=== PATIENT | male | born 1980 | race Caucasian/White ===

== ENCOUNTER 2016-10-10 16:13 | Emergency (ER) | payer MEDICARE, OTHER ==
[2016-10-10 16:35] VITALS: BP 131/82; PULSE 75; RESP 16; TEMP 98.8; O2SAT 99
--- NOTE | 2016-10-10 16:56 | ED PDOC ---
HPI: Chest Pain Time Seen by Provider: 10/10/16 16:22 Chief Complaint (Nursing): Cough, Cold, Congestion Chief Complaint (Provider): Cough/Chest Pain History Per: Patient History/Exam Limitations: no limitations Onset/Duration Of Symptoms: Persistent (2 weeks) Current Symptoms Are (Timing): Still Present Severity: Moderate Additional Complaint(s): Luis Momin is a 35 y/o male presenting to the ER on 10/10/2016 with complaints of a productive cough w/ yellow sputum x2 weeks. Cough is associated with chills and left sided pleuritic chest pain. Patient describes pain is exacerbated upon deep breaths, coughing, and movement. Patient denies any fevers or palpitations Of note, patient has a past medical history of HIV (+). CD4 count is 800 with an undetectable viral load. Past Medical History Reviewed: Historical Data, Nursing Documentation, Vital Signs Vital Signs: Last Vital Signs Temp 98.8 F 10/10/16 16:25 Pulse 75 10/10/16 16:25 Resp 16 10/10/16 16:25 BP 131/82 10/10/16 16:25 Pulse Ox 99 10/10/16 19:30 - Medical History PMH: HIV - Surgical History Surgical History: No Surg Hx - Family History Family History: States: Unknown Family Hx - Social History Current smoker - smoking cessation education provided: Yes Alcohol: None Drugs: Denies - Home Medications Home Medications: Ambulatory Orders Medication Instructions Recorded Albuterol HFA [Ventolin HFA 90 1 puff IH ASDIR #1 unit 06/24/16 mcg/actuation (8 g)] Benzonatate 200 mg PO TID PRN #20 capsule 06/24/16 Levofloxacin [Levaquin] 500 mg PO DAILY #5 tablet 06/24/16 Albuterol HFA [Ventolin HFA 90 2 puff IH [id number] PRN #1 bottle 10/10/16 mcg/actuation (8 g)] Azithromycin [Zithromax] 500 mg PO DAILY #1 tab 10/10/16 - Allergies Allergies/Adverse Reactions: Allergies Allergy/AdvReac Type Severity Reaction Status Date / Time No Known Allergies Allergy Verified 06/24/16 12:27 Curb-65 Severity Score - CURB-65 Severity Score Bun >19mg/dl (>7mmol/L): No Respiratory Rate greater than/equal to 30: No Systolic BP <90 or Diastolic BP less than/equal 60mmHg: No Age >64: No Curb-65 Score: 0 Percentage 30-day mortality: 0.6% Review of Systems ROS Statement: Except As Marked, All Systems Reviewed And Found Negative Constitutional: Positive for: Chills. Negative for: Fever Cardiovascular: Positive for: Chest Pain. Negative for: Palpitations Respiratory: Positive for: Cough, Sputum (yellow) Physical Exam - Reviewed Nursing Documentation Reviewed: Yes Vital Signs Reviewed: Yes - Physical Exam Appears: Positive for: Non-toxic, No Acute Distress Head Exam: Positive for: ATRAUMATIC, NORMOCEPHALIC Skin: Positive for: Normal Color, Warm, Dry Eye Exam: Positive for: Normal appearance, EOMI, PERRL Neck: Positive for: Normal, Painless ROM, Supple Cardiovascular/Chest: Positive for: Regular Rate, Rhythm. Negative for: Chest Non Tender ((+) tenderness to left anterior chest wall ), Murmur Respiratory: Positive for: Normal Breath Sounds. Negative for: Wheezing, Respiratory Distress Extremity: Positive for: Normal ROM, Other ((-) edema ). Negative for: Calf Tenderness, Deformity, Swelling Neurologic/Psych: Positive for: Alert, Oriented, Other (pt is able to speak complete sentences ). Negative for: Motor/Sensory Deficits - Laboratory Results Result Diagrams: 10/10/16 17:00 10/10/16 17:00 - ECG Interpretation Of ECG: NSR @ 68, no ST-T changes. O2 Sat by Pulse Oximetry: 99 - Radiology X-Ray: Read By Radiologist (Findings are most compatible with reactive small airway disease/ viral/ atypical pneumonitis. No lobar pneumonia.) Medical Decision Making Medical Decision Makin:22 Initial Impression- Differential Diagnosis includes but not limited to Bronchitis, Pneumonia, Pleuritic Chest Pain. Initial Plan- * EKG * CMP * Troponin * CBC w/ differential * D-Dimer * PT * PTT * Blood Cx * CXR * Re-evaluate 19:20 Pt threatening to pull out heplock, asking to leave. Refused ABG and repeat blood work. Documented by Terese Berrios, acting as a scribe for Beth Duran MD. All medical record entries made by the Scribe were at my direction and personally dictated by me. I have reviewed the chart and agree that the record accurately reflects my personal performance of the history, physical exam, medical decision making, and the department course for this patient. I have also personally directed, reviewed, and agree with the discharge instructions and disposition. Disposition - Clinical Impression Clinical Impression: Acute bronchitis - Patient ED Disposition Is Patient to be Admitted: No - Disposition Referrals: Kwabena Chandler MD [Staff Provider] - Disposition: Routine/Home Disposition Time: 19:27 Condition: FAIR Prescriptions: Albuterol HFA [Ventolin HFA 90 mcg/actuation (8 g)] 2 puff IH [id number] PRN #1 bottle PRN Reason: Shortness Of Breath Azithromycin [Zithromax] 500 mg PO DAILY #1 tab Instructions: Acute Bronchitis (ED)
[2016-10-10 17:10] LABS: BASO # 0.1 K/uL (0.0-0.2); BASO % 1.2 % (0.0-2.0); EOS # 0.2 K/uL (0.0-0.7); EOS % 1.6 % (0.0-4.0); HEMATOCRIT 41.3 % (35.0-51.0); LYMPH # 2.4 K/uL (1.0-4.3); LYMPH % 19.5 % (20.0-40.0); MEAN CELL VOLUME 88.4 fl (80.0-94.0); MEAN CORPUSCULAR HEMOGLOBIN 30.2 pg (27.0-31.0); MEAN CORPUSCULAR HGB CONC 34.2 g/dL (33.0-37.0); MEAN PLATELET VOLUME 6.7 fl (7.2-11.7); MONO # 0.4 K/uL (0.0-0.8); MONO % 3.6 % (0.0-10.0); NEUT % 74.1 % (50.0-75.0); RED CELL DISTRIBUTION WIDTH 13.8 % (11.5-14.5); WHITE BLOOD COUNT 12.1 K/uL (4.8-10.8)
[2016-10-10 17:32] LABS: PARTIAL THROMBOPLASTIN TIME 28.5 SECONDS (23.3-32.5)
[2016-10-10 17:49] LABS: GLUCOSE,RANDOM 97 mg/dL (75-110)
[2016-10-10 17:50] LABS: ALB/GLOB RATIO 1.3 (1.0-2.1); BLOOD UREA NITROGEN 9 mg/dl (9-20); CALCIUM 9.5 mg/dL (8.4-10.2); CARBON DIOXIDE 24 mmol/L (22-30); CHLORIDE 101 mmol/L (98-107); GFR AFRICAN-AMERICAN > 60; SODIUM 140 mmol/l (132-148); TOTAL PROTEIN 7.5 G/DL (6.3-8.2)
[2016-10-10 17:51] LABS: ALKALINE PHOSPHATASE 65 U/L (38-126); ALT/SGPT 26 U/L (21-72); AST/SGOT 28 U/L (17-59); BILIRUBIN,TOTAL 0.4 mg/dl (0.2-1.3)
--- NOTE | 2016-10-10 18:02 | RAD ---
HISTORY: Cough COMPARISON: 06/24/2016. TECHNIQUE: Chest PA and lateral FINDINGS: LUNGS: There is persistent mild pulmonary hyperinflation and peribronchial thickening with increased streaky opacities in both lungs. There is no focal consolidation. PLEURA: No significant pleural effusion identified. No pneumothorax apparent. CARDIOVASCULAR: Normal. OSSEOUS STRUCTURES: No significant abnormalities. VISUALIZED UPPER ABDOMEN: Normal. OTHER FINDINGS: None. IMPRESSION: Findings are most compatible with reactive small airway disease/ viral/ atypical pneumonitis. No lobar pneumonia.
--- NOTE | 2016-10-12 10:45 | CARD ---
APPROVED REPORT EKG Measurement Heart [id number] <Conclusion> Normal sinus rhythm Normal ECG
== END 2016-10-10 19:30 | disposition home or self-care (01) ==
LOC: H.ER 16:13
DX: J20.9 Acute bronchitis, unspecified (principal); R07.9 Chest pain, unspecified; Z21 Asymptomatic human immunodeficiency virus [HIV] infection status; F17.200 Nicotine dependence, unspecified, uncomplicated

== ENCOUNTER 2017-08-02 09:56 | Emergency (ER) | payer MEDICARE ==
[2017-08-02 09:56] VITALS: BMI 19.3
[2017-08-02 10:15] VITALS: BP 116/73; PULSE 81; RESP 18; TEMP 97; O2SAT 98
--- NOTE | 2017-08-02 11:06 | ED PDOC ---
HPI: CCC, URI, Sore Throat Time Seen by Provider: 08/02/17 10:51 Chief Complaint (Nursing): ENT Problem Chief Complaint (Provider): left ear pain History Per: Patient Additional Complaint(s): 36-year-old male presents with painful left ear for one week associated with muffled hearing. No fever or chills, no active drainage or bleeding from the affected ear. PMD: Dr. Weaver Past Medical History Reviewed: Historical Data, Nursing Documentation, Vital Signs Vital Signs: Last Vital Signs Temp 97 F L 08/02/17 10:12 Pulse 81 08/02/17 10:12 Resp 18 08/02/17 10:12 BP 116/73 08/02/17 10:12 Pulse Ox 98 08/02/17 11:06 - Medical History PMH: HIV - Surgical History Surgical History: No Surg Hx - Family History Family History: States: No Known Family Hx - Living Arrangements Living Arrangements: With Family - Social History Current smoker - smoking cessation education provided: Yes Alcohol: None Drugs: Denies - Home Medications Home Medications: Ambulatory Orders Medication Instructions Recorded Albuterol HFA [Ventolin HFA 90 1 puff IH ASDIR #1 unit 06/24/16 mcg/actuation (8 g)] Benzonatate 200 mg PO TID PRN #20 capsule 06/24/16 Levofloxacin [Levaquin] 500 mg PO DAILY #5 tablet 06/24/16 Albuterol HFA [Ventolin HFA 90 2 puff IH [id number] PRN #1 bottle 10/10/16 mcg/actuation (8 g)] Azithromycin [Zithromax] 500 mg PO DAILY #1 tab 10/10/16 Amoxicillin [Amoxil 250 mg Cap] 250 mg PO TID #21 cap 05/18/17 Benzonatate [Tessalon Perles] 100 mg PO Q8 #30 sgl 05/18/17 Elviteg/Rosalie/Emtric/Tenofo Dis 1 tab PO DAILY 05/18/17 [Stribild] Carbamide Peroxide [Ear System] 15 ml OT DAILY #1 bottle 08/02/17 - Allergies Allergies/Adverse Reactions: Allergies Allergy/AdvReac Type Severity Reaction Status Date / Time No Known Allergies Allergy Verified 06/24/16 12:27 Review of Systems ROS Statement: Except As Marked, All Systems Reviewed And Found Negative Constitutional: Negative for: Fever ENT: Positive for: Ear Pain (left) Physical Exam - Reviewed Nursing Documentation Reviewed: Yes Vital Signs Reviewed: Yes - Physical Exam Appears: Positive for: Well, Non-toxic, No Acute Distress Skin: Negative for: Rash Eye Exam: Positive for: Normal appearance ENT: Positive for: Other (Right ear: normal, Left ear: Moderate amount of cerumen noted, tympanic membrane is not well-visualized) Neurologic/Psych: Positive for: Alert, Oriented - ECG O2 Sat by Pulse Oximetry: 98 Pulse Ox Interpretation: Normal Medical Decision Making Medical Decision Makin-year-old male with cerumen impaction to left ear. Plan: Rx debrox and OTC ear wax removal kit given. Advised PMD follow up for any persistent symptoms. Disposition - Clinical Impression Clinical Impression: Cerumen impaction - Patient ED Disposition Is Patient to be Admitted: No Counseled Patient/Family Regarding: Diagnosis, Need For Followup, Rx Given, Smoking Cessation - Disposition Referrals: Kwabena Weaver MD [Family Provider] - Disposition: Routine/Home Disposition Time: 11:04 Condition: STABLE Additional Instructions: Use rx meds as directed. Follow up with primary care doctor for any further symptoms. Prescriptions: Carbamide Peroxide [Ear System] 15 ml OT DAILY #1 bottle Instructions: Cerumen Impaction (ED) Forms: [employer] (Hungarian)
== END 2017-08-02 11:07 | disposition home or self-care (01) ==
LOC: H.ER 09:56
DX: H61.22 Impacted cerumen, left ear (principal)

== ENCOUNTER 2018-07-08 09:58 | Day surgery (SDC) | payer MEDICARE ==
[2018-07-08 10:49] VITALS: BMI 18.3
[2018-07-08] MEDS ORDERED: Lactated Ringer's 1,000 ML IV ONE (11:06)
[2018-07-08] MEDS ORDERED: Iohexol 300 10 ML ONE (12:55)
--- NOTE | 2018-07-08 12:59 | CP.SDSHP ---
Same Day Surgery H & P - History Proposed Procedure: Thoracic medial branch nerve blocks Pre-Op Diagnosis: Thoracic spondylosis - Allergies Allergies: Allergies No Known Allergies Allergy (Verified 07/08/18 10:19) - Physical Exam Vital Signs: Vital Signs 07/08/18 07/08/18 10:30 10:38 Temperature 98 F Pulse Rate 83 83 Respiratory 18 Rate Blood Pressure 125/86 O2 Sat by Pulse 100 Oximetry Neuro: WNL Heart: WNL Lungs: WNL - Impression Impression: Thoracic spondylosis Pt. Evaluated Today:Candidate for Anesthesia & Procedure: Yes Short Stay Discharge - Short Stay Discharge Admitting Diagnosis/Reason for Visit: M47.814 Disposition: HOME/ ROUTINE Referrals: Alesia Young MD [Primary Care Provider] -
[2018-07-08] MEDS ORDERED: Midazolam 2 MG/2 ML VIAL ONE (13:52)
[2018-07-08] MEDS: Lidocaine 1% Inj (20ml) ONE ×2 (13:53→14:00)
[2018-07-08] MEDS: Bupivacaine HCl 0.25% PF (30 ml) Inj ONE ×2 (13:54→14:05)
[2018-07-08] MEDS: MethylPREDNISolone Depo 40 mg/ml Inj ONE ×2 (13:55→14:05)
[2018-07-08] MEDS ORDERED: HYDROmorphone 0.5 mg/0.5 ml ISec IVP PRN (14:15)
[2018-07-08] MEDS ORDERED: Lactated Ringer's 1,000 ML IV SCH (14:15)
[2018-07-08 14:59] VITALS: RESP 18; O2SAT 100
[2018-07-08 15:14] VITALS: BP 123/85; PULSE 84; TEMP 97.4
--- NOTE | 2018-07-08 16:48 | RAD ---
Date of service: 07/08/2018 PROCEDURE: Fluoroscopy up to 1 hr. HISTORY: PAIN MANAGEMENT COMPARISON: None TECHNIQUE: Standard protocol for this study/examination. FINDINGS: Total fluoroscopic time (continuous mode) utilized during the procedure 25.9 seconds. Total exam DLP: 4.43 (mGy). IMPRESSION: Less than 1 hr fluoroscopic assistance provided during performance of the procedure.
--- NOTE | 2018-07-09 00:50 | OP ---
PROCEDURE DATE: 07/08/2018 PREOPERATIVE DIAGNOSIS: Thoracic spondylosis. POSTOPERATIVE DIAGNOSIS: Thoracic spondylosis. PROCEDURE: Bilateral T8, T9, and T10 medial branch nerve block. ANESTHESIOLOGIST: Latrice Flannery MD SURGEON: Virginia Skinner MD ANESTHESIA TYPE: Monitored anesthesia care. COMPLICATIONS: None. SPECIMENS: None. DESCRIPTION OF PROCEDURE: Procedure is as follows: After we had a discussion of the procedure with the patient including its risks, benefits, alternatives, outcome data, possibility of no effect or increased pain, the patient consented to the procedure. He denied any recent infection, bleeding tendencies, or being on anticoagulants. Decision was then made to proceed to the OR. The patient was placed on a fluoroscopy table in a prone position with two pillows underneath his abdomen. The back was prepped and draped in the usual sterile fashion and a sterile technique was adhered to during the entire procedure. The T8, T9 and T10 vertebral levels were first identified on the anterior-posterior view. The medial branch nerves are located at the pedicles. The procedure was first performed on the right side. The skin overlying the 3 o'clock target areas was then infiltrated with 1% lidocaine using 25-gauge needle. Subsequently, a 25-gauge 3-1/2-inch spinal needle was incrementally advanced under fluoroscopic guidance until tip of the needle made bony contact with the target areas. After satisfactory positioning of all three needles, approximately 2 mL of 0.25% Marcaine and Depo-Medrol mixture was injected. The needle was then removed and same exact procedure was performed on contralateral side using the same medications and techniques. At the end of the case, patient's back was cleaned and dry bandages were applied. The patient was then transported to the recovery area in good conditions without any signs of [employer] toxicity or any new neurological deficits. She will be followed in the office in approximately two to four weeks. Virginia Skinner MD
== END 2018-07-08 15:11 | disposition home or self-care (01) ==
LOC: H.OPSURG 09:58
PROVIDERS: ATTEND Anesthesiology
DX: M47.814 Spondylosis without myelopathy or radiculopathy, thoracic region (principal); M19.90 Unspecified osteoarthritis, unspecified site; Z21 Asymptomatic human immunodeficiency virus [HIV] infection status; M54.9 Dorsalgia, unspecified
CPT/HCPCS: 64633; 64634; J1030; J2250; J3010; J7120; Q9967

== ENCOUNTER 2018-08-17 09:52 | Day surgery (SDC) | payer MEDICARE ==
[2018-08-17] MEDS ORDERED: Lactated Ringer's 1,000 ML IV ONE (10:27)
--- NOTE | 2018-08-17 11:08 | CP.SDSHP ---
Same Day Surgery H & P - History Proposed Procedure: Lumbar medial branch nerve blocks Pre-Op Diagnosis: LUmbar spondylosis - Previous Medical/Surgical History Comments: HIV - Allergies Allergies: Allergies No Known Allergies Allergy (Verified 07/08/18 10:19) - Physical Exam Vital Signs: Vital Signs 08/17/18 10:17 Temperature 98 F Pulse Rate 71 Respiratory 14 Rate Blood Pressure 120/71 O2 Sat by Pulse 100 Oximetry Neuro: WNL Heart: WNL Lungs: WNL - Impression Impression: Lumbar spondylosis Pt. Evaluated Today:Candidate for Anesthesia & Procedure: Yes Short Stay Discharge - Short Stay Discharge Admitting Diagnosis/Reason for Visit: M47.816 Disposition: HOME/ ROUTINE Referrals: Alesia Young MD [Primary Care Provider] -
[2018-08-17] MEDS ORDERED: methylPREDNISolone Depo 80 mg/ml Inj ONE (12:53)
[2018-08-17] MEDS ORDERED: Midazolam 2 MG/2 ML VIAL ONE (12:54)
[2018-08-17] MEDS ORDERED: Lidocaine 1% Inj (20ml) IM ONE (12:56)
[2018-08-17] MEDS ORDERED: methylPREDNISolone Depo 80 mg/ml Inj IM ONE (12:56)
[2018-08-17] MEDS ORDERED: Bupivacaine HCl 0.5% PF (30 ml) Inj IJ ONE ×2 (12:56→12:57)
[2018-08-17] MEDS ORDERED: Lidocaine 1% PF (5ml) Amp INJ ONE (12:58)
[2018-08-17] MEDS ORDERED: Lactated Ringer's 1,000 ML IV SCH (13:45)
[2018-08-17 13:58] VITALS: RESP 18
[2018-08-17 14:49] VITALS: BP 125/61; PULSE 63; TEMP 97.6; O2SAT 100
--- NOTE | 2018-08-18 00:43 | OP ---
PROCEDURE DATE: 08/17/2018 PREOPERATIVE DIAGNOSIS: Lumbar spondylosis. POSTOPERATIVE DIAGNOSIS: Lumbar spondylosis. PROCEDURE: Bilateral L3, L4, and L5 medial branch nerve blocks. ANESTHESIOLOGIST: Dr. Oliver SURGEON: Virginia Skinner MD ANESTHESIA TYPE: Monitored anesthesia care. COMPLICATIONS: None. SPECIMEN: None. DESCRIPTION OF PROCEDURE: Procedure is as follows: After we had discussion of the procedure with the patient including its risks, benefits, alternatives, outcome data, possibility of no effect or increased pain, the patient consented to the procedure. He denied any recent infection, bleeding tendencies or being on anticoagulants. A decision was then made to proceed to the OR. The patient was placed on the fluoroscopy table in a prone position with two pillows underneath his abdomen. The back was prepped and draped in the usual sterile fashion. A sterile technique was adhered to during the entire procedure. The L3, L4, and L5 medial branch nerves were located at the intersection of the superior articular process and the transverse process of the L4 and L5 pedicles along with the sacral ala. The procedure was first performed on the right side by turning the fluoroscopy towards the right at approximately 15 degrees. The skin overlying the three above targeted areas was then infiltrated with 1% lidocaine using a 25-gauge needle. Subsequently, a 22-gauge 3.5-inch spinal needle was then incrementally advanced under fluoroscopic guidance until tip of the needle made bony contact with all three target areas. After satisfactory positioning of both needles, approximately 2 mL of 0.5% Marcaine and Depo-Medrol mixture was injected. The needle was then removed. The same exact procedure was performed on the contralateral left side using the same medications and technique. At the end of the case, the patient's back was cleaned and dry bandage was applied. The patient was then transferred to the recovery area in good condition without any signs of [employer]LE[employer] LEAD toxicity or any neurological deficit. He will be following up in the office in approximately two to four weeks. Virginia Skinner MD
--- NOTE | 2018-08-18 14:07 | RAD ---
Date of service: 08/17/2018 PROCEDURE: Intraoperative Fluoroscopy. HISTORY: PAIN MANAGEMENT FINDINGS: Fluoroscopic assistance was provided. Fluoroscopy time = 18.2 sec. Radiation dose = 3.08 mGy. Please refer to the operative report from ALANA Gomez.
== END 2018-08-17 15:15 | disposition home or self-care (01) ==
LOC: H.OPSURG 09:52
PROVIDERS: ATTEND Anesthesiology
DX: M47.816 Spondylosis without myelopathy or radiculopathy, lumbar region (principal)
CPT/HCPCS: 64493; 64494; J1040; J2250; J3010; J7120